=== PATIENT | male | born 1975 | race Two or more races ===

== ENCOUNTER 2016-11-05 13:59 | Emergency (ER) | payer SELFPAY ==
[~2016-11-05] VITALS: Ht 180.3 cm; Wt 68.0 kg
[2016-11-05 13:59] VITALS: BP 154/85
[2016-11-05] MEDS ORDERED: AMPH15TA2 PO (14:08)
[2016-11-05] MEDS ORDERED: TDAP [DIPH/PERTUSSIS/TET] 0.5 ML VIAL IM ONE ×2 (14:30→14:40)
[2016-11-05] MEDS ORDERED: IBUPROFEN 600 MG TABLET PO ONE ×2 (14:30→14:39)
== END 2016-11-05 14:54 | disposition home or self-care (01) ==
LOC: ER 14:02
DX: S50.12XA Contusion of left forearm, initial encounter (principal); F90.9 Attention-deficit hyperactivity disorder, unspecified type; F17.200 Nicotine dependence, unspecified, uncomplicated; X58.XXXA Exposure to other specified factors, initial encounter; Y93.39 Activity, other involving climbing, rappelling and jumping off; Y92.89 Other specified places as the place of occurrence of the external cause; Y99.8 Other external cause status
CPT/HCPCS: 73090; 90471; 90715; 99284; A4606; Z7610